=== PATIENT | female | born 1935 | race Caucasian/White ===

== ENCOUNTER → 2020-03-27 | Outpatient (CLI) | payer OTHER ==
[~2020-03-27] MED LIST: ASPIRIN325 OR; CENTRUM SILVER1 EAC1 PO; COQ10 SG 100 S1 EACH PO; CRESTOR10 MG PO; FISH OIL 1,0001 EAC5 PO; GINKGO BILOBA40 M1 PO; IMDUR 30 MG TAB30 M1 PO; MIRAPEX0.125 MG PO; NITROGLYCERIN PO; NORVASC 5 MG TAB5 MG PO; OMEPRAZOLE; OXYBUTYNIN; PANTOPRAZOLE SO40 M1 PO; PLAVIX 75 MG TA75 M1 PO; PRILOSEC 20 MG20 MG PO; RANEXA500 MG PO; TOPROL XL25 MG PO
== END ==
LOC: SJCVC 16:29
DX: R94.31 Abnormal electrocardiogram [ECG] [EKG] (principal); I25.10 Atherosclerotic heart disease of native coronary artery without angina pectoris; E78.00 Pure hypercholesterolemia, unspecified; I10 Essential (primary) hypertension; I65.23 Occlusion and stenosis of bilateral carotid arteries; I34.0 Nonrheumatic mitral (valve) insufficiency; Z95.5 Presence of coronary angioplasty implant and graft; Z79.899 Other long term (current) drug therapy

== ENCOUNTER → 2020-10-24 | Outpatient (CLI) | payer OTHER | LOC: SJCVCIMAG 09-23 08:14 | PROVIDERS: ATTEND Internal Medicine Cardiovascular Disease | DX: I25.10 Atherosclerotic heart disease of native coronary artery without angina pectoris (principal); E78.00 Pure hypercholesterolemia, unspecified; I25.5 Ischemic cardiomyopathy; I34.0 Nonrheumatic mitral (valve) insufficiency; I10 Essential (primary) hypertension; G20 Parkinson's disease; Z79.899 Other long term (current) drug therapy ==

== ENCOUNTER → 2021-11-14 | Outpatient (CLI) | payer OTHER | LOC: SJCVC 13:26 | PROVIDERS: ATTEND Internal Medicine Cardiovascular Disease | DX: R94.31 Abnormal electrocardiogram [ECG] [EKG] (principal); I25.10 Atherosclerotic heart disease of native coronary artery without angina pectoris; I10 Essential (primary) hypertension; E78.00 Pure hypercholesterolemia, unspecified; G20 Parkinson's disease; E78.5 Hyperlipidemia, unspecified; Z88.2 Allergy status to sulfonamides; Z88.8 Allergy status to other drugs, medicaments and biological substances; Z79.899 Other long term (current) drug therapy ==